=== PATIENT | female | born 2000 | race African-American/Black ===

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

== ENCOUNTER 2022-03-31 16:46 | Emergency (ER) | payer OTHER ==
[2022-03-31 17:19] VITALS: BP 107/68; PULSE 86; TEMP 98.3; BMI 56.7
== END 2022-03-31 19:06 | disposition home or self-care (01) ==
LOC: JERFT 16:46
DX: S63.641A Sprain of metacarpophalangeal joint of right thumb, initial encounter (principal); X50.0XXA Overexertion from strenuous movement or load, initial encounter
CPT/HCPCS: 73130-TC-RT-FY; 99283-25

== ENCOUNTER 2023-02-17 17:56 | Emergency (ER) | payer OTHER ==
[2023-02-17 18:04] VITALS: BP 113/74; PULSE 107; RESP 19; TEMP 98.5; BMI 53.1
[2023-02-17] MEDS ORDERED: SODIUM CHLORIDE 0.9% 500 ML INFUS.BAG IV ONE (19:02)
[2023-02-17] MEDS ORDERED: MAG HYDROX/AL HYDROX/SIMETH 30 ML UNIT-DOSE CUP PO ONE (19:02)
[2023-02-17] MEDS ORDERED: FAMOTIDINE 20 MG/50 ML IVPB 20 MG/50 ML MG IVPB ONE ×2 (19:02→19:19)
[2023-02-17] MEDS ORDERED: MAG HYDROX/AL HYDROX/SIMETH 30 ML UNIT-DOSE CUP ONE (19:18)
[2023-02-17 20:18] LABS: BASO % 0.5 % (0-2.0); EOS % 1.7 % (0-4.5); HEMATOCRIT 40.7 % (32.4-45.2); HEMOGLOBIN 13.7 GM/dL (10.7-15.3); LYMPH % 21.4 % (8-40); MCH 28.9 pg (25.7-33.7); MCHC 33.6 g/dl (32.0-36.0); MEAN PLT VOLUME 10.5 fl (7.5-11.1); MONO % 7.6 % (3.8-10.2); NEUT % 68.8 % (42.8-82.8); PLATELET COUNT 255 10^3/uL (134-434); RBC 4.74 M/mm3 (3.60-5.2); RDW 13.1 % (11.6-15.6); WHITE BLOOD COUNT 9.4 K/mm3 (4.0-10.0)
[2023-02-17 20:27] LABS: POTASSIUM 4.7 mmol/L (3.5-5.1)
[2023-02-17 20:29] LABS: ALBUMIN 4.2 g/dl (3.4-5.0); CALCIUM 9.4 mg/dL (8.5-10.1)
[2023-02-17 20:33] LABS: CREATININE 0.6 mg/dL (0.55-1.3)
[2023-02-17 20:34] LABS: BILIRUBIN,TOTAL 0.4 mg/dL (0.2-1); TOT PROT 7.5 g/dl (6.4-8.2)
== END 2023-02-17 21:24 | disposition home or self-care (01) ==
LOC: JER 17:56
PROC: 3E033GC Introduction of Other Therapeutic Substance into Peripheral Vein, Percutaneous Approach (ICD-10-PCS; principal; 2023-02-17)
DX: R10.13 Epigastric pain (principal); R11.2 Nausea with vomiting, unspecified
CPT/HCPCS: 36415; 80053; 83690; 85025; 93005; 93010; 99284-25